=== PATIENT | female | born 1975 | race Caucasian/White ===

== ENCOUNTER 2018-01-21 20:42 | Emergency (ER) | payer OTHER ==
[2018-01-21 20:52] VITALS: PULSE 82; RESP 20
[2018-01-21] MEDS ORDERED: Sodium Chloride 0.9% 1,000 ML IV ONE (21:19)
[2018-01-21 21:38] LABS: BASO % 0.3 % (0.0-2.0); EOS % 0.2 % (0.0-4.0); HEMOGLOBIN 13.1 g/dL (11.0-16.0); LYMPH # 2.3 K/uL (1.0-4.3); MEAN CELL VOLUME 84.8 fL (81.0-99.0); MEAN CORPUSCULAR HEMOGLOBIN 28.2 pg (27.0-31.0); MEAN CORPUSCULAR HGB CONC 33.3 g/dL (33.0-37.0); MEAN PLATELET VOLUME 9.1 fL (7.2-11.7); MONO # 0.5 K/uL (0.0-0.8); MONO % 6.1 % (0.0-10.0); NEUT # 4.9 K/uL (1.8-7.0); NEUT % 63.4 % (50.0-75.0); NRBC % 0.1 % (0.0-2.0); RBC 4.63 Mil/uL (3.80-5.20); RED CELL DISTRIBUTION WIDTH 13.5 % (11.5-14.5); WHITE BLOOD COUNT 7.7 K/uL (4.8-10.8)
[2018-01-21 21:49] LABS: ALB/GLOB RATIO 1.5 (1.0-2.1); ALBUMIN 4.2 g/dL (3.5-5.0); ALT/SGPT 24 U/L (9-52); AST/SGOT 18 U/L (14-36); BLOOD UREA NITROGEN 8 mg/dL (7-17); CALCIUM 9.2 mg/dl (8.6-10.4); GFR AFRICAN-AMERICAN > 60; GFR NON-AFRICAN AMERICAN > 60; LIPASE 59 U/L (23-300)
[2018-01-21 21:51] LABS: SQUAMOUS EPITHIAL 18 /hpf (0-5); URINE BILIRUBIN NEGATIVE (NEGATIVE); URINE BLOOD NEGATIVE (NEGATIVE); URINE CLARITY Hazy (Clear); URINE COLOR Amber (YELLOW); URINE GLUCOSE (UA) NORMAL (Normal); URINE LEUKOCYTE ESTERASE TRACE Leu/uL (Negative); URINE PROTEIN NEGATIVE (NEGATIVE)
[2018-01-21 21:52] LABS: HCG,QUALITATIVE URINE NEGATIVE (NEGATIVE)
[2018-01-21] MEDS ORDERED: Alum-Mag Hydrox-Simethicone Susp (30 mL) PO STA (22:46)
--- NOTE | 2018-01-21 23:23 | C.PDOC ---
Time Seen by Provider: 01/21/18 21:04 Chief Complaint (Nursing): Abdominal Pain History Per: Patient, Family Onset/Duration Of Symptoms: Days (1) Current Symptoms Are (Timing): Still Present Context: Other (New medication) Severity: Moderate Location Of Pain/Discomfort: Epigastric Quality Of Discomfort: "Pain" Associated Symptoms: Nausea Alleviating Factors: None Additional History Per: Prior Records Past Medical History Reviewed: Historical Data, Nursing Documentation, Vital Signs Vital Signs: Last Vital Signs Temp 98.6 F 01/21/18 20:45 Pulse 82 01/21/18 20:45 Resp 20 01/21/18 20:45 BP 125/84 01/21/18 20:45 Pulse Ox 97 01/21/18 23:23 - Medical History PMH: Depression, Gastritis Surgical History: No Surg Hx Family History: States: Unknown Family Hx - Social History Hx Alcohol Use: No Hx Substance Use: No - Immunization History Hx Tetanus Toxoid Vaccination: No Hx Influenza Vaccination: No Hx Pneumococcal Vaccination: No Review Of Systems Except As Marked, All Systems Reviewed And Found Negative. Constitutional: Negative for: Fever, Weakness Cardiovascular: Negative for: Chest Pain Respiratory: Negative for: Shortness of Breath Gastrointestinal: Positive for: Nausea, Abdominal Pain. Negative for: Diarrhea , Melena, Hematochezia, Hematemesis Musculoskeletal: Negative for: Neck Pain, Back Pain Skin: Negative for: Rash Neurological: Negative for: Weakness, Numbness Psych: Negative for: Suicidal ideation Physical Exam - Physical Exam Appears: Non-toxic, No Acute Distress Skin: Normal Color, Warm, Dry, No Rash Head: Atraumatic, Normacephalic Eye(s): bilateral: Normal Inspection, PERRL, EOMI Neck: Normal ROM, Supple Cardiovascular: Rhythm Regular Respiratory: Normal Breath Sounds, No Accessory Muscle Use Gastrointestinal/Abdominal: Soft, Tenderness (epigastric), No Distention, No Guarding, No Rebound Back: No CVA Tenderness Extremity: Normal ROM, No Pedal Edema, No Calf Tenderness Neurological/Psych: Oriented x3, Normal Speech, Normal Cognition, Normal Motor, Normal Sensation ED Course And Treatment - Laboratory Results Result Diagrams: 01/21/18 21:31 01/21/18 21:31 Lab Interpretation: No Acute Changes Urine POC: Negative O2 Sat by Pulse Oximetry: 97 Pulse Ox Interpretation: Normal Progress - Interventions Interventions:: Observation, Intravenous fluid - Medications Administered Oral: Antacid Intravenous: Antiemetic, H-2 el - Data Reviewed Data Reviewed: Lab, Old records - Patient Status Patient status: Mostly improved - Continuity of Care Discussed patient case with:: Patient, Family-HIPPA compliant, ED Nurse - Patient Plan Patient Plan: Discharge, F/U with PCP Disposition Counseled Patient/Family Regarding: Studies Performed, Diagnosis, Need For Followup - Disposition Referrals: Evelyn Heller MD [Staff Provider] - Disposition: HOME/ ROUTINE Disposition Time: 00:07 Condition: IMPROVED Additional Instructions: Eat a bland diet. Follow up with your doctor for further evaluation and treatment. Return to the ER if you develop fever, vomiting, bloody or black stools, worsening of symptoms or if you have any other concerns. Instructions: Gastritis (DC) Forms: [facility] (Slovak) - Clinical Impression Clinical Impression: Epigastric abdominal pain, Nausea & vomiting
[2018-01-22 00:44] VITALS: BP 128/72; TEMP 98.7; O2SAT 98
== END 2018-01-22 00:43 | disposition home or self-care (01) ==
LOC: C.ER 20:42
DX: R10.13 Epigastric pain (principal); R11.2 Nausea with vomiting, unspecified
CPT/HCPCS: 80053; 81001; 83690; 83735; 84703; 85025; 96361; 96374; 96375; 99283; J2405; J7030